=== PATIENT | male | born 1940 | race Caucasian/White ===

== ENCOUNTER 2021-12-08 21:39 | Observation (INO) ==
[2021-12-08] MEDS ORDERED: Iohexol 350 (CONTRAST) 500 ML MDV IV ONE ×2 (21:52→21:58)
[2021-12-08 22:10] LABS: Hematocrit 37 % (42-52); Hemoglobin 12.5 g/dL (14.0-18.0); Mean Corpuscular HGB Conc 34 g/dL (31-36); Mean Corpuscular Hemoglobin 33 pg (27-31); Mean Corpuscular Volume 96 fL (80-94); Platelet Count 171 10^3/uL (150-450); Red Blood Count 3.81 10^6 /uL (4.18-5.48); Red Cell Distribution Width 13 % (10-15); White Blood Count 5.1 10^3/uL (3.5-10.8)
[2021-12-08 22:22] LABS: Activated Partial Thrombo Time 32.1 seconds (26.0-38.0); INR 1.13 (0.86-1.15)
[2021-12-08 22:33] LABS: ABS Eosinophils 0.1 10^3/ul (0-0.6); ABS Monocytes 1.7 10^3/ul (0-0.8); ABS Neutrophils 2.3 10^3/ul (1.5-7.7); Albumin 3.8 g/dL (3.2-5.2); Albumin/Globulin Ratio 1.8 (1-3); Calcium 8.6 mg/dL (8.6-10.3); Eosinophil % 1.5 %; Globulin 2.1 g/dL (2-4); HDL Cholesterol 28.3 mg/dL; Lymphocyte % 19.5 %; Nucleated Red Blood Cells % 0.1; Potassium 4.4 mmol/L (3.5-5.0); Total Bilirubin 0.4 mg/dL (0.2-1.0); Total Protein 5.9 g/dL (6.4-8.9)
[2021-12-08 23:23] LABS: TSH Ultra Thyroid Stim Horm 3.84 mcIU/mL (0.34-5.60)
[2021-12-08] MEDS ORDERED: Ondansetron 4 mg VIAL 2 MG/ML 2 ml VIAL IV PRN (23:28)
[2021-12-08 23:34] LABS: Folate 17.66 ng/mL (5.90-24.80)
[2021-12-08] MEDS ORDERED: Albuterol HFA INHALER 8 gm MDI INH PRN (23:42)
[2021-12-09] MEDS: Enoxaparin 40 MG/0.4 ML SYR SUBCUT SCH ×2 (01:11→22:20)
[2021-12-09 06:29] LABS: ABS Eosinophils 0.1 10^3/ul (0-0.6); ABS Lymphocytes 0.7 10^3/ul (1.0-4.8); ABS Monocytes 1.5 10^3/ul (0-0.8); ABS Neutrophils 3.4 10^3/ul (1.5-7.7); Eosinophil % 0.9 %; Hematocrit 40 % (42-52); Hemoglobin 13.5 g/dL (14.0-18.0); Lymphocyte % 11.8 %; Mean Corpuscular HGB Conc 34 g/dL (31-36); Mean Corpuscular Hemoglobin 32 pg (27-31); Mean Corpuscular Volume 95 fL (80-94); Mean Platelet Volume 7.7 fL (7.4-10.4); Platelet Count 169 10^3/uL (150-450); Red Blood Count 4.22 10^6 /uL (4.18-5.48); Red Cell Distribution Width 14 % (10-15); White Blood Count 5.7 10^3/uL (3.5-10.8)
[2021-12-09 07:11] LABS: Blood Urea Nitrogen 25 mg/dL (6-24); CO2 Carbon Dioxide 29 mmol/L (22-32); Calcium 8.9 mg/dL (8.6-10.3); Chloride 101 mmol/L (101-111); Glucose 115 mg/dL (70-100); Magnesium 1.7 mg/dL (1.9-2.7); Sodium 139 mmol/L (135-145); eGFR CKD-EPI 63.8 (>60)
[2021-12-09 08:03] LABS: Anion Gap 9 mmol/L (2-11)
[2021-12-09] MEDS ORDERED: Perflutren Lipid Microsphere 3 ML VIAL ONE (08:38)
[2021-12-09] MEDS: Aspirin EC 81 mg TAB.EC (enteric coated) PO SCH (09:32)
[2021-12-09] MEDS: Cholecalciferol (VIT D3) 1,000 unit TAB PO SCH ×2 (09:33→22:22)
[2021-12-10 06:02] LABS: ABS Eosinophils 0.1 10^3/ul (0-0.6); ABS Lymphocytes 0.9 10^3/ul (1.0-4.8); ABS Neutrophils 1.8 10^3/ul (1.5-7.7); Eosinophil % 2.2 %; Hematocrit 38 % (42-52); Lymphocyte % 23.5 %; Mean Corpuscular HGB Conc 34 g/dL (31-36); Mean Corpuscular Hemoglobin 32 pg (27-31); Mean Corpuscular Volume 96 fL (80-94); Mean Platelet Volume 8.1 fL (7.4-10.4); Nucleated Red Blood Cells % 0.1; Platelet Count 171 10^3/uL (150-450); Red Blood Count 4.01 10^6 /uL (4.18-5.48); Red Cell Distribution Width 13 % (10-15); White Blood Count 3.7 10^3/uL (3.5-10.8)
[2021-12-10 06:36] LABS: Calcium 8.5 mg/dL (8.6-10.3); Potassium 3.9 mmol/L (3.5-5.0); eGFR CKD-EPI 65.2 (>60)
[2021-12-10] MEDS: Aspirin EC 81 mg TAB.EC (enteric coated) PO SCH (09:44)
[2021-12-10] MEDS: Cholecalciferol (VIT D3) 1,000 unit TAB PO SCH (09:45)
[2021-12-10 12:38] VITALS: BP 130/75
== END 2021-12-10 15:09 | disposition home or self-care (01) ==
LOC: ED 21:39 → EDHOLD 21:39 → SUATTDRO 12-09 00:03 → EDHOLD 12-09 20:48 → MEDTELE 12-09 21:15
PROVIDERS: ADMIT Internal Medicine; ATTEND Student in an Organized Health Care Education/Training Program